=== PATIENT | female | born 1940 | race Caucasian/White ===

== ENCOUNTER 2016-07-31 22:03 | Inpatient (IN) | payer OTHER ==
[~2016-07-31] VITALS: Ht 160 cm; Wt 88.5 kg
[~2016-07-31 22:03] MED LIST: ASPIRIN EC325 MG PO; CELEBREX200 MG PO; COLACE50 MG PO; CYANOCOBALAM1000 MCG PO; Flaxseed Oil PO; ISOSORBIDE DINI30 MG PO; NORVASC5 MG PO; TYLENOL REGULA325 MG PO; Toprol XL PO; VESICARE5 MG PO; VICODIN 5-3001 EACH PO; Vitamin D PO; Vitamin-E PO
[2016-07-31 22:58] LABS: MCH 28.6 PG (29.0-34.0); MCHC 32.6 G/DL (30.0-36.0); MCV 87.7 FL (83-99); MEAN PLAT.VOLUME 11.1 uM^3 (9.5-12.4); PLATELET COUNT 216 K/uL (156-360); RBC DIS.WIDTH-CV 14.3 % (11.8-14.6); RBC DIS.WIDTH-SD 45.2 % (39-53); RED BLOOD COUNT 4.79 M/uL (3.80-5.20)
[2016-07-31 23:12] LABS: CHLORIDE 109 mEq/L (99-109)
[2016-07-31 23:13] LABS: POTASSIUM 3.9 mEq/L (3.7-5.4); SODIUM 143 mEq/L (136-147)
[2016-07-31 23:14] LABS: GLUCOSE 109 mg/dL (70-99)
[2016-07-31 23:16] LABS: ANION GAP 9 MEQ/L (2-14)
[2016-07-31 23:18] LABS: GFR ESTIMATE (CALCULATED) 51 mL/min/
[2016-07-31 23:19] LABS: UREA NITROGEN (BUN) 17 mg/dL (9-23)
[2016-07-31 23:20] LABS: TROP-I INTERPRETATION NEGATIVE; TROPONIN-I < 0.01 ng/mL (0.0-0.30)
[2016-08-01 01:10] LABS: TROP-I INTERPRETATION NEGATIVE; TROPONIN-I < 0.01 ng/mL (0.0-0.30)
[2016-08-01 06:36] LABS: PROTHROMBIN TIME 10.5 (9.2-11.2); PTT 32.1 (25-32)
[2016-08-01] MEDS ORDERED: VITAMIN D-3 401 EACH PO (07:18)
[2016-08-01 09:17] LABS: TROP-I INTERPRETATION NEGATIVE; TROPONIN-I < 0.01 ng/mL (0.0-0.30)
[2016-08-01 13:28] LABS: INTER. NORMALIZED RATIO 1.1; PROTHROMBIN TIME 11.2 (9.2-11.2)
[2016-08-01 13:47] LABS: PTT > 150.0 (25-32)
[2016-08-01 16:50] LABS: TROP-I INTERPRETATION NEGATIVE; TROPONIN-I < 0.01 ng/mL (0.0-0.30)
[2016-08-01 17:10] VITALS: BP 141/71
[2016-08-01 20:04] VITALS: BP 133/76
[2016-08-02 00:05] VITALS: BP 135/67
[2016-08-02 04:28] VITALS: BP 146/78
[2016-08-02 07:30] VITALS: BP 139/70
[2016-08-02 09:15] LABS: HDL CHOLESTEROL 41 MG/DL (Desirable>=50); LDL CHOLESTEROL 125 mg/dL (Desirable<100); NON-HDL CHOLESTEROL 156 mg/dL (Desirable<160); TOTAL CHOLESTEROL 197 mg/dL (Desirable<200); TRIGLYCERIDES 153 MG/DL (Normal: <150)
[2016-08-02 09:28] LABS: TROP-I INTERPRETATION NEGATIVE; TROPONIN-I < 0.01 ng/mL (0.0-0.30)
[2016-08-02 12:15] VITALS: BP 130/66
[2016-08-02 18:41] LABS: ADD MIUA? YES; BILIRUBIN NEGATIVE; BLOOD NEGATIVE; COLOR YELLOW ((YELLOW)); GLUCOSE (STRIP) NEGATIVE; KETONES NEGATIVE; LEUKOCYTES NEGATIVE; NITRITE NEGATIVE; PROTEIN (STRIP) 100; UROBILINOGEN 0.2 MG/DL (0.2-1.0)
[2016-08-02 19:20] VITALS: BP 145/66
[2016-08-02] MEDS ORDERED: CIPRO250 MG PO (20:19)
[2016-08-02] MEDS ORDERED: LOPRESSOR25 MG PO (20:19)
[2016-08-02 21:27] LABS: CASTS NONE SEEN /LPF; EPITHELIAL CELLS 1+ /HPF; MUCUS NONE SEEN /LPF
[2016-08-02 21:28] LABS: BACTERIA 1+ /HPF; RED BLOOD CELLS NONE SEEN /HPF (0-5); WHITE BLOOD CELLS 0-5 /HPF (0-5)
== END 2016-08-02 21:20 | disposition home or self-care (01) | DRG 287 ==
LOC: EME 22:03 → 4EAST 08-01 04:52 → EDOF 08-01 04:52 → 4EAST 08-01 16:55
PROVIDERS: Emergency Medicine; Internal Medicine
PROC: B2151ZZ Fluoroscopy of Left Heart using Low Osmolar Contrast (ICD-10-PCS; principal; 2016-08-02)
PROC: B2111ZZ Fluoroscopy of Multiple Coronary Arteries using Low Osmolar Contrast (ICD-10-PCS; principal; 2016-08-02)
DX: R07.2 Precordial pain (principal); I42.9 Cardiomyopathy, unspecified; R94.31 Abnormal electrocardiogram [ECG] [EKG]; I44.7 Left bundle-branch block, unspecified; I10 Essential (primary) hypertension; E78.5 Hyperlipidemia, unspecified; M19.90 Unspecified osteoarthritis, unspecified site; E03.9 Hypothyroidism, unspecified; E66.9 Obesity, unspecified
CPT/HCPCS: 71020; 80048; 80061; 81003; 84484; 85027; 85610; 85730; 93005; 99281; 99285; C1769; C1887; J1644; J2250; J3010; J7040

== ENCOUNTER 2017-09-27 21:38 | Observation (INO) | payer OTHER ==
[~2017-09-27] VITALS: Ht 160 cm; Wt 88.0 kg
[~2017-09-27 21:38] MED LIST changes: +CIPRO250 MG PO; +LOPRESSOR25 MG PO; +VITAMIN D-3 401 EACH PO
[2017-09-27 23:14] LABS: APPEARANCE CLEAR ((CLEAR)); BILIRUBIN NEGATIVE; BLOOD NEGATIVE; COLOR STRAW ((YELLOW)); GLUCOSE (STRIP) NEGATIVE; KETONES NEGATIVE; LEUKOCYTES NEGATIVE; NITRITE NEGATIVE; PROTEIN (STRIP) 100; SPECIFIC GRAVITY 1.014 (1.000-1.030); UROBILINOGEN 0.2 MG/DL (0.2-1.0)
[2017-09-27 23:18] LABS: HEMATOCRIT 40.6 % (36.0-46.0); HEMOGLOBIN 13.3 G/DL (11.9-15.5); MCHC 32.8 G/DL (30.0-36.0); MCV 88.5 FL (83-99); PLATELET COUNT 200 K/uL (156-360); RBC DIS.WIDTH-CV 13.8 % (11.8-14.6); RBC DIS.WIDTH-SD 44.1 % (39-53); RED BLOOD COUNT 4.59 M/uL (3.80-5.20); WHITE BLOOD COUNT 7.7 K/uL (4.1-10.2)
[2017-09-27 23:18] LABS: BACTERIA NONE SEEN /HPF; EPITHELIAL CELLS RARE /HPF; MUCUS TRACE /LPF; RED BLOOD CELLS 0-5 /HPF (0-5); UCUL ADDED? NO; WHITE BLOOD CELLS 0-5 /HPF (0-5)
[2017-09-27 23:27] LABS: CHLORIDE 108 mEq/L (99-109); POTASSIUM 3.9 mEq/L (3.7-5.4); SODIUM 142 mEq/L (136-147)
[2017-09-27 23:28] LABS: GLUCOSE 109 mg/dL (70-99)
[2017-09-27 23:32] LABS: GFR ESTIMATE (CALCULATED) 57 mL/min/
[2017-09-27 23:33] LABS: UREA NITROGEN (BUN) 18 mg/dL (9-23)
[2017-09-27 23:35] LABS: INTER. NORMALIZED RATIO 1.1
[2017-09-27 23:38] LABS: PTT 38.5 SEC (25-37)
[2017-09-27 23:40] LABS: TROP-I INTERPRETATION NEGATIVE; TROPONIN-I < 0.01 ng/mL (0.0-0.30)
[2017-09-28 05:29] VITALS: BP 178/89
[2017-09-28 07:09] VITALS: BP 135/64
[2017-09-28 10:38] VITALS: BP 116/66
[2017-09-28] MEDS ORDERED: COZAAR50 MG PO (14:55)
[2017-09-28 15:54] VITALS: BP 140/74
[2017-09-28 19:04] VITALS: BP 147/70
[2017-09-28] MEDS ORDERED: CLOPIDOGREL75 MG PO (21:07)
== END 2017-09-28 22:21 | disposition home or self-care (01) ==
LOC: EME 21:38 → EDOF 09-28 03:41 → ENRESERV 09-28 03:41 → EDOF 09-28 03:41 → ENRESERV 09-28 04:00 → 5WEST 09-28 05:16
PROVIDERS: Emergency Medicine
DX: G45.9 Transient cerebral ischemic attack, unspecified (principal); I10 Essential (primary) hypertension; I25.10 Atherosclerotic heart disease of native coronary artery without angina pectoris; I42.9 Cardiomyopathy, unspecified; I44.7 Left bundle-branch block, unspecified; E78.5 Hyperlipidemia, unspecified; M19.90 Unspecified osteoarthritis, unspecified site; E03.9 Hypothyroidism, unspecified; Z79.82 Long term (current) use of aspirin; Z87.891 Personal history of nicotine dependence; Z87.442 Personal history of urinary calculi
CPT/HCPCS: 70496; 71045; 80048; 81003; 84484; 85027; 85610; 85730; 93005; 93880; 99281; 99285; G0378; J1650